=== PATIENT | male | born 1965 | race African-American/Black ===

== ENCOUNTER 2017-06-09 12:21 | Emergency (ER) | payer OTHER ==
[2017-06-09 12:41] VITALS: BP 148/86; PULSE 78; TEMP 97.1; BMI 33.7
[2017-06-09] MEDS ORDERED: KETOROLAC TROMETHAMINE 60 MG/2 ML VIAL IM ONE (13:07)
[2017-06-09] MEDS ORDERED: diazePAM 5 MG TABLET PO ONE (13:07)
[2017-06-09] MEDS ORDERED: KETOROLAC TROMETHAMINE 60 MG/2 ML VIAL ONE (13:11)
[2017-06-09] MEDS ORDERED: diazePAM 5 MG TABLET ONE (13:11)
--- NOTE | 2017-06-09 13:29 | PDOC ---
History of Present Illness - General Chief Complaint: Back Pain Stated Complaint: LOWER BACK PAIN Time Seen by Provider: 06/09/17 12:51 History Source: Patient Exam Limitations: No Limitations - History of Present Illness Initial Comments: 06/09/17 13:08 CHIEF COMPLAINT: [Lower back pain] HISTORY OF PRESENT ILLNESS:[ 52]-year-old [male history of low back herniation was seen at Dr. Randall today, has a MRI scheduled for tomorrow.,[ Nonradiating pain, no neurosensory deficits, no bowel or bladder difficulty incontinence or urinary retention, no saddle anesthesia, no footdrop. No history of IVDU or history of cancer. ] REVIEW OF SYSTEMS: GENERAL: Afebrile, denies any weakness RESPIRATORY: No cough, wheezing, or hemoptysis. CARDIAC: No chest pain or shortness of breath MUSCULOSKELETAL: Pain to generalized lower back. No point tenderness. Pain worse on left then right SKIN : No erythema, no bruising, no deformity. GI/: Denies any abdominal pain, no urinary difficulty, incontinence or urinary retention. RECTAL: Denies any difficulty this A.m. NEUROLOGICAL: Denies any numbness or tingling. No neurosensory deficits. PHYSICAL EXAM: GENERAL: The patient is awake, alert, and fully oriented, in no acute distress. RESPIRATORY: Lungs clear bilaterally, no rhonchi wheezes or crackles CARDIAC: S1-S2 audible, no murmur rub or gallop MUSCULOSKELETAL: Pain to generalized lower back, nonradiating, no tingling or sensory deficit. Less than 2 second cap refill, +4 popliteal and pedal pulses. GI/: Abdomen soft, nontender, nondistended. No rebound tenderness. No masses palpable. MUSCULOSKELETAL: No spinal point tenderness. Normal reflexive and no deficits to sensation or strength. RECTAL: [Normal Rectal Tone]. SKIN: Warm, Dry, normal turgor, no erythema, no edema no bruising. Past History - Past Medical History Allergies/Adverse Reactions: Allergies Allergy/AdvReac Type Severity Reaction Status Date / Time No Known Allergies Allergy Verified 06/09/17 12:37 Home Medications: Ambulatory Orders Oxycodone HCl/Acetaminophen [Percocet 5-325 mg Tablet] 1 - 2 tab PO Q4H #20 tablet MDD 8 03/03/16 Methylprednisolone [Medrol Dose Abbe] 4 mg PO ASDIR #21 tablet 06/09/17 Oxycodone HCl/Acetaminophen [Percocet 5-325 mg Tablet] 1 - 2 tab PO Q4H #20 tablet MDD 10 06/09/17 COPD: No Other medical history: back problems - Immunization History Immunization Up to Date: Yes - Suicide/Smoking/Psychosocial Hx Smoking History: Current every day smoker Have you smoked in the past 12 months: Yes Number of Cigarettes Smoked Daily: 5 Information on smoking cessation initiated: No 'Breaking Loose' booklet given: 03/03/16 Hx Alcohol Use: No Drug/Substance Use Hx: No Substance Use Type: None Trauma Specific PMHX - Complaint Specific PMHX Back Injury: Yes Neck Injury: No *Physical Exam - Vital Signs Last Vital Signs Temp Pulse Resp BP Pulse Ox 97.1 F L 78 20 148/86 98 06/09/17 12:25 06/09/17 12:25 06/09/17 12:25 06/09/17 12:25 06/09/17 12:25 Medical Decision Making - Medical Decision Making 06/09/17 13:29 A/P: Patient with chronic lower back pain has MRI scheduled for tomorrow pain increased in intensity took Flexeril of Motrin without resolve. Dr. Randall sent patient to ER for "shot" will give Toradol 60 mg and Valium 5 mg then reevaluate. 06/09/17 16:25 Patient reports pain is better after the Toradol DC patient home on Percocet and Solu-Medrol, follow-up tomorrow for MRI and follow-up with surgeon. *DC/Admit/Observation/Transfer Diagnosis at time of Disposition: Lumbar pain - Discharge Dispostion Disposition: HOME Condition at time of disposition: Stable - Prescriptions Prescriptions: Methylprednisolone [Medrol Dose Abbe] 4 mg PO ASDIR #21 tablet Oxycodone HCl/Acetaminophen [Percocet 5-325 mg Tablet] 1 - 2 tab PO Q4H #20 tablet MDD 10 - Referrals Referrals: Robinson Randall MD [Primary Care Provider] - - Patient Instructions Additional Instructions: 1. Please return to the emergency department with any numbness, tingling, weakness, numbness or tingling to groin or legs, or loss of bowel or bladder function. 2. Use pain medication as ordered. 3. Please is to followup in the office of Dr. Randall for evaluation within a week if no improvement. 4. Ice or heat 5. Refrain from lifting anything above 10 pounds, until pain resolved. - Post Discharge Activity Forms/Work/School Notes: Back to Work
== END 2017-06-09 14:03 | disposition home or self-care (01) ==
LOC: JERFT 12:21
PROC: 3E0233Z Introduction of Anti-inflammatory into Muscle, Percutaneous Approach (ICD-10-PCS; principal; 2017-06-09)
DX: M54.5 Low back pain (principal); F17.210 Nicotine dependence, cigarettes, uncomplicated
CPT/HCPCS: 99281-25

== ENCOUNTER 2017-07-07 19:04 | Emergency (ER) | payer OTHER ==
[2017-07-07 19:44] VITALS: BP 155/80; PULSE 84; TEMP 98.5; BMI 33.5
--- NOTE | 2017-07-07 22:09 | PDOC ---
History of Present Illness - General Chief Complaint: Back Pain Stated Complaint: BACK PAIN Time Seen by Provider: 07/07/17 21:51 History Source: Patient Exam Limitations: No Limitations - History of Present Illness Initial Comments: CHIEF COMPLAINT: 52 y/o male with hx of back problems (L2-L3 bone on bone) c/o flare up of back pain for the past 3 days. HISTORY OF PRESENT ILLNESS: The patient states for the past 3 weeks his low back pain has been flaring up more than usual. He had an MRI today and after laying in the machine can't take the pain. He normally takes MOtrin and sometimes a muscle relaxer but those are not helping. He denies new injury/ trauma to back, numbness/tingling in lower extremities, saddle anesthesia, bowel /bladder incontinence. Vital signs on arrival are within normal limits. REVIEW OF SYSTEMS: GENERAL/CONSTITUTIONAL: No fever/chills. No weakness. No weight change. GENITOURINARY: No dysuria, frequency, or change in urination. No bowel/bladder incontinence. MUSCULOSKELETAL: +back pain. No neck or back pain. SKIN: No rash or easy bruising. NEUROLOGIC: No headache, vertigo, loss of consciousness, or loss of sensation. PHYSICAL EXAM: GENERAL: The patient is awake, alert, and fully oriented, in moderate-severe discomfort. Patient keeps shifting his weight trying to find a comfortable position and is breathing through gritted teeth. BACK: TTP of midline L2-L3 area with TTP and muscle spasm of left lumbar paravertebral muscles. EXTREMITIES: Normal range of motion, no edema. NEUROLOGICAL: Normal speech, normal gait. CN II-XII grossly intact. No saddle anesthesia. Equal muscle strength b/l LEs. SKIN: Warm, dry, normal turgor, no rashes or lesions noted. Past History - Past Medical History Allergies/Adverse Reactions: Allergies Allergy/AdvReac Type Severity Reaction Status Date / Time No Known Allergies Allergy Verified 06/09/17 12:37 Home Medications: Ambulatory Orders Oxycodone HCl/Acetaminophen [Percocet 5-325 mg Tablet] 1 tab PO Q6H #10 tablet MDD 5 07/07/17 COPD: No - Immunization History Immunization Up to Date: Yes - Suicide/Smoking/Psychosocial Hx Smoking History: Current every day smoker Have you smoked in the past 12 months: Yes Number of Cigarettes Smoked Daily: 5 Information on smoking cessation initiated: No 'Breaking Loose' booklet given: 03/03/16 Hx Alcohol Use: No Drug/Substance Use Hx: No Substance Use Type: None Trauma Specific PMHX - Complaint Specific PMHX Back Injury: Yes Neck Injury: No *Physical Exam - Vital Signs Last Vital Signs Temp Pulse Resp BP Pulse Ox 98.5 F 84 18 155/80 100 07/07/17 19:43 07/07/17 19:43 07/07/17 19:43 07/07/17 19:43 07/07/17 19:43 Medical Decision Making - Medical Decision Making A/P: 52 y/o male with LBP secondary to flare up of chronic injury. Will give 2 percocet in the ER and discharge to home with rx for 10 percocet. He does have an appointment for f/u with his doctor tomorrow to read the MRI. THe patient was instructed to return to the ER with any worsening or concerning symptoms. The patient verbalizes understanding of all instructions, has no further questions and is awaiting discharge. *DC/Admit/Observation/Transfer Diagnosis at time of Disposition: Muscle spasm of back Low back pain Qualifiers: Chronicity: unspecified Back pain laterality: bilateral Sciatica presence: without sciatica Qualified Code(s): M54.5 - Low back pain - Discharge Dispostion Disposition: HOME Condition at time of disposition: Good - Referrals - Patient Instructions Printed Discharge Instructions: DI for Low Back Pain Additional Instructions: Discharge Instructions: -Please keep follow up appointment with your doctor scheduled for tomorrow -A prescription for percocet has been sent to your pharmacy; it may cause drowsiness -REturn to the ER with any worsening or concerning symptoms. - Post Discharge Activity
== END 2017-07-07 22:15 | disposition home or self-care (01) ==
LOC: JERFT 19:04
DX: M62.830 Muscle spasm of back (principal); M54.5 Low back pain; Z87.828 Personal history of other (healed) physical injury and trauma; F17.210 Nicotine dependence, cigarettes, uncomplicated
CPT/HCPCS: 99281-25

== ENCOUNTER 2018-04-15 12:24 | Emergency (ER) | payer OTHER ==
[2018-04-15 12:31] VITALS: BP 115/85; PULSE 82; TEMP 98.7; BMI 28.4
[2018-04-15] MEDS ORDERED: KETOROLAC TROMETHAMINE 30 MG/1 ML VIAL IM ONE (13:01)
[2018-04-15] MEDS ORDERED: diazePAM 5 MG TABLET PO ONE (13:01)
--- NOTE | 2018-04-15 13:03 | PDOC ---
History of Present Illness - General Chief Complaint: Back Pain Stated Complaint: LOWER BACK PAIN Time Seen by Provider: 04/15/18 12:45 History Source: Patient Exam Limitations: No Limitations - History of Present Illness Initial Comments: 04/15/18 13:01 CHIEF COMPLAINT: Lower back pain HISTORY OF PRESENT ILLNESS: 53-year-old male who presents emergency department for evaluation of acute on chronic lower back pain. Patient reports the pain is in his right sided lower back that shoots down the posterior right lower extremity to the popliteal. He denies any neurosensory deficits, incontinence of bladder or bowel, urinary retention, saddle anesthesia, foot drop, history of IV drug use or cancer. REVIEW OF SYSTEMS: GENERAL: Afebrile, denies any weakness RESPIRATORY: No cough, wheezing, or hemoptysis. CARDIAC: No chest pain or shortness of breath MUSCULOSKELETAL: Pain to right sided lower back. Unable to localize specific point. SKIN : No erythema, no bruising, no deformity. GI/: Denies any abdominal pain, no urinary difficulty, incontinence or urinary retention. RECTAL: Denies any difficulty this A.m. NEUROLOGICAL: Denies any numbness or tingling. No neurosensory deficits. PHYSICAL EXAM: GENERAL: The patient is awake, alert, and fully oriented, in no acute distress. RESPIRATORY: Lungs clear bilaterally, no rhonchi wheezes or crackles CARDIAC: S1-S2 audible, no murmur rub or gallop MUSCULOSKELETAL: Pain to generalized lower back, nonradiating, no tingling or sensory deficit. Less than 2 second cap refill, +2 pedal pulses. No spinal point tenderness. Normal reflexive and no deficits to sensation or strength. GI/: Abdomen soft, nontender, nondistended. No rebound tenderness. No masses palpable. RECTAL: Deferred patient with no neurological findings SKIN: Warm, Dry, normal turgor, no erythema, no edema no bruising. Past History - Past Medical History Allergies/Adverse Reactions: Allergies Allergy/AdvReac Type Severity Reaction Status Date / Time No Known Allergies Allergy Verified 04/15/18 12:52 Home Medications: Ambulatory Orders NK [No Known Home Medication] 04/15/18 COPD: No Other medical history: CHRONIC LOWER BACK PAIN - Immunization History Immunization Up to Date: Yes - Suicide/Smoking/Psychosocial Hx Smoking History: Current every day smoker Have you smoked in the past 12 months: Yes Number of Cigarettes Smoked Daily: 3 Information on smoking cessation initiated: No 'Breaking Loose' booklet given: 03/03/16 Hx Alcohol Use: No Drug/Substance Use Hx: No Substance Use Type: None Trauma Specific PMHX - Complaint Specific PMHX Back Injury: Yes Neck Injury: No *Physical Exam - Vital Signs Last Vital Signs Temp Pulse Resp BP Pulse Ox 98.7 F 82 18 115/85 98 04/15/18 12:30 04/15/18 12:30 04/15/18 12:30 04/15/18 12:30 04/15/18 12:30 Moderate Sedation - Procedure Monitoring Vital Signs: Procedure Monitoring Vital Signs Temperature 98.7 F 04/15/18 12:30 Pulse Rate 82 04/15/18 12:30 Respiratory Rate 18 04/15/18 12:30 Blood Pressure 115/85 04/15/18 12:30 O2 Sat by Pulse Oximetry (%) 98 04/15/18 12:30 Medical Decision Making - Medical Decision Making 04/15/18 13:02 A/P: 53-year-old male with acute on chronic lower back pain status post heavy lifting No bony tenderness upon palpation Tenderness to palpation bilateral lumbar paraspinous muscles. Worse on the right compared to left No palpable muscle spasms noted Able to perform straight leg raises without difficulty No foot drop noted Neurovascular intact Toradol 30 mg IM now Valium 5 mg orally now Reassess 04/15/18 13:45 Patient reports his pain has improved after receiving medication. Patient noted to be ambulatory with improve range of motion of is lumbar spine. Discharge the patient home for continued evaluation with his primary doctor as needed. I discussed the physical exam findings, ancillary test results and final diagnoses with the patient. I answered all of the patient's questions. The patient was satisfied with the care received and felt comfortable with the discharge plan and treatment plan. The patient will call their primary care physician within 24 hours to arrange follow-up and will return to the Emergency Department with any new, persistent or worsening symptoms. *DC/Admit/Observation/Transfer Diagnosis at time of Disposition: Acute exacerbation of chronic low back pain - Discharge Dispostion Disposition: HOME Condition at time of disposition: Stable Decision to Admit order: No - Referrals Referrals: Robinson Randall MD [Primary Care Provider] - - Patient Instructions Additional Instructions: Rest. Take Tylenol or Motrin as needed for pain. Follow manufacturers instructions for appropriate dosage. Warm moist heat applied to your back may help alleviate pain. This pain may take 6-8 weeks to resolve. Pain is not resolved in that time return to her primary doctor for reevaluation. Return to emergency department for numbness or tingling to the feet, genitals or rectum, worsening pain, or any other concerns. Thank you very much for choosing us to provide your emergent healthcare needs. - Post Discharge Activity Forms/Work/School Notes: Back to Work
[2018-04-15] MEDS ORDERED: KETOROLAC TROMETHAMINE 30 MG/1 ML VIAL ONE (13:05)
[2018-04-15] MEDS ORDERED: diazePAM 5 MG TABLET ONE (13:06)
== END 2018-04-15 13:58 | disposition home or self-care (01) ==
LOC: JERFT 12:24
PROC: 3E0233Z Introduction of Anti-inflammatory into Muscle, Percutaneous Approach (ICD-10-PCS; principal; 2018-04-15)
DX: M54.5 Low back pain (principal)
CPT/HCPCS: 96372; 99281-25

== ENCOUNTER 2018-09-11 11:21 | Emergency (ER) | payer SELFPAY, OTHER | END 2018-09-11 12:33 | disposition home or self-care (01) | LOC: JERFT 11:21 ==

== ENCOUNTER 2020-01-23 11:31 | Emergency (ER) | payer OTHER ==
[2020-01-23] MEDS ORDERED: LIDOCAINE 5% TOPICAL PATCH TP ONE (11:54)
--- NOTE | 2020-01-23 11:54 | PDOC ---
Rapid Medical Evaluation Time Seen by Provider: 01/23/20 11:48 Medical Evaluation: Allergies Allergy/AdvReac Type Severity Reaction Status Date / Time No Known Allergies Allergy Verified 09/11/18 11:39 01/23/20 11:50 I performed a brief in-person evaluation of this patient. Pt is a 54 y/o male with complaint of low back pain x 5 days. States today it got worse. Has not seen his spine doc for almost a year. Pt has tried taking Motrin for the pain. No injury. Pertinent physical exam findings: Significant low back pain with movement and palpation. I have ordered the following: lumbar xr, lidocaine patch, flexeril Patient to proceed to ED for further evaluation. Discharge Disposition - Diagnosis Low back pain - Referrals - Patient Instructions - Post Discharge Activity
[2020-01-23] MEDS ORDERED: CYCLOBENZAPRINE HCL 10 MG TABLET (FP) PO ONE (11:55)
[2020-01-23 11:56] VITALS: BP 124/87; PULSE 71; TEMP 98.2; BMI 27.7
[2020-01-23] MEDS ORDERED: KETOROLAC TROMETHAMINE 60 MG/2 ML VIAL IM ONE (12:26)
[2020-01-23] MEDS ORDERED: KETOROLAC TROMETHAMINE 60 MG/2 ML VIAL ONE (12:30)
--- NOTE | 2020-01-23 12:32 | PDOC ---
History of Present Illness - General Chief Complaint: Back Pain Stated Complaint: BACK PAIN Time Seen by Provider: 01/23/20 11:48 History Source: Patient - History of Present Illness Occurred: reports: other Pain Location: reports: back Past History - Medical History Allergies/Adverse Reactions: Allergies Allergy/AdvReac Type Severity Reaction Status Date / Time No Known Allergies Allergy Verified 01/23/20 11:55 Home Medications: Ambulatory Orders Amox-Tr/K Cl [Augmentin - 875Mg Tablet] 1 tab PO BID #14 tablet 09/11/18 Ketorolac Tromethamine [Toradol -] 10 mg PO TID PRN #21 tablet 09/11/18 Azithromycin [Zithromax] 500 mg PO ONCE #2 tablet 11/08/19 metroNIDAZOLE [Metronidazole] 2,000 gm PO ONCE #4 tablet 11/14/19 Acetaminophen [Tylenol -] 1,000 mg PO Q6H #40 tablet 01/23/20 Bictegrav/Emtricit/Tenofov Ala [Biktarvy 50-200-25 mg Tablet] 1 each PO DAILY #30 tablet 01/23/20 Cyclobenzaprine HCl [Flexeril 10 mg] 10 mg PO HS #9 tablet 01/23/20 Oxycodone HCl/Acetaminophen [Percocet 5-325 mg Tablet] 1 tab PO Q6H #15 tablet MDD 4 doses 01/23/20 Anemia: No Asthma: No Cancer: No Cardiac Disorders: No CVA: No COPD: No CHF: No Dementia: No Diabetes: No GI Disorders: No Disorders: No HTN: No Hypercholesterolemia: No Liver Disease: No Seizures: No Thyroid Disease: No - Immunization History Immunization Up to Date: Yes - Psycho-Social/Smoking History Smoking History: Current every day smoker Have you smoked in the past 12 months: Yes Number of Cigarettes Smoked Daily: 3 Information on smoking cessation initiated: No 'Breaking Loose' booklet given: 03/03/16 - Substance Abuse Hx (Audit-C & DAST Scrn) How often the patient has a drink containing alcohol: Monthly or less Number of drinks the patient has on a typical day: 1 or 2 How often the patient has six or more drinks on one occasion: Never Score: In Men: 4 or > Positive; In Women: 3 or > Positive: 1 Screen Result (Pos requires Nsg. Audit-10AR): Negative In the last yr the pt used illegal drug/Rx for NonMed reason: Yes Score: Yes response is considered Positive: 1 Screen Result (Positive result requires Nsg. DAST-10): Positive Trauma Specific PMHX - Complaint Specific PMHX Back Injury: Yes Neck Injury: No Review of Systems - Review of Systems Constitutional: No: Chills, Fever ABD/GI: No: Nausea, Vomiting, Abdominal cramping : No: Burning, Dysuria, Hematuria Musculoskeletal: Yes: Back Pain Neurological: No: Numbness, Tingling, Weakness, Dizziness *Physical Exam - Vital Signs Last Vital Signs Temp Pulse Resp BP Pulse Ox 98.2 F 71 17 124/87 100 01/23/20 11:52 01/23/20 11:52 01/23/20 11:52 01/23/20 11:52 01/23/20 11:52 - Physical Exam General Appearance: Yes: Appropriately Dressed, Moderate Distress HEENT: positive: Normal Voice Neck: positive: Supple Respiratory/Chest: negative: Respiratory Distress Gastrointestinal/Abdominal: positive: Soft. negative: Tender Musculoskeletal: positive: Vertebral Tenderness (to mid lower back). negative: CVA Tenderness, CVA Tenderness (L) Integumentary: positive: Dry, Warm Neurologic: positive: Fully Oriented, Alert, Normal Mood/Affect, Motor Strength 5/5 Medical Decision Making - Medical Decision Making 01/23/20 12:32 54 yo M, h/o chronic LBP s/p work injury 6 years ago and told "no cartilage between the bones" on remote MRI, no surgery or PT in the past, f/u with pain MD in [place], here w/ his usual lower back pain radiating into his right buttocks and posterior aspect of his right thigh that started several days ago. No sensory changes, lower extremity weakness saddle anesthesia or bowel or bladder incontinence. Taking Motrin and Tylenol with no relief. States he usually gets Percocet for his pain but has since run out. Has pain appointment and early February. see exam Acute on chronic lower back pain No red flags at this time DC with pain control Patient to follow-up with pain doctor as already scheduled Discharge - Discharge Information Problems reviewed: Yes Clinical Impression/Diagnosis: Acute exacerbation of chronic low back pain - Additional Discharge Information Prescriptions: Cyclobenzaprine HCl [Flexeril 10 mg] 10 mg PO HS #9 tablet Oxycodone HCl/Acetaminophen [Percocet 5-325 mg Tablet] 1 tab PO Q6H #15 tablet MDD 4 doses Acetaminophen [Tylenol -] 1,000 mg PO Q6H #40 tablet - Follow up/Referral Referrals: Robinson Randall MD [Primary Care Provider] - - Patient Discharge Instructions Patient Printed Discharge Instructions: Managing Chronic Low Back Pain Additional Instructions: Take tylenol and flerexil as directed If pain is severe, take percocet as needed Please follow up with your pain doctor as already scheduled - Post Discharge Activity Work/Back to School Note: Back to Work
--- OUTSIDE RECORDS SUMMARY | 2020-01-23 12:38 | XMS ---
:1965 Author Organization [facility] Support Name Relationship Address Phone UE Unavailable Unavailable Unavailable [employer] [address] [facility] [address] [place] [address] Re-disclosure Warning The records that you are about to access may contain information from federally- assisted alcohol or drug abuse programs. If such information is present, then the following federally mandated warning applies: This information has been disclosed to you from records protected by federal confidentiality rules (42 CFR part 2). The federal rules prohibit you from making any further disclosure of this information unless further disclosure is expressly permitted by the written consent of the person to whom it pertains or as otherwise permitted by 42 CFR part 2. A general authorization for the release of medical or other information is NOT sufficient for this purpose. The Federal rules restrict any use of the information to criminally investigate or prosecute any alcohol or drug abuse patient.The records that you are about to access may contain highly sensitive health information, the redisclosure of which is protected by Article 27-F of the [facility] Public Health law. If you continue you may haveaccess to information: Regarding HIV / AIDS; Provided by facilities licensed or operated by the [facility] Office of Mental Health; or Provided by the [facility] Office for People With Developmental Disabilities. If such information is present, then the following [facility] mandated warning applies: This information has been disclosed to you from confidential records which are protected by state law. State law prohibits you from making any further disclosure of this information without the specific written consent of the person to whom it pertains, or as otherwise permitted by law. Any unauthorized further disclosure in violation of state law may result in a fine or skilled nursing sentence or both. A general authorization for the release of medical or other information is NOT sufficient authorization for further disclosure. Insurance Providers Payer name Policy type Policy ID Covered Covered libertarian's Policy P faby / Coverage libertarian ID relationship to [employer] type [place] [id number] [place] [id number] HMO SELF PAY SP INSURANCE [place] [id number] [address] [facility]
[2020-01-23] MEDS ORDERED: LIDOCAINE PATCH REMOVAL MC SCH (22:00)
== END 2020-01-23 12:44 ==
LOC: JERFT 11:31
PROC: 3E0233Z Introduction of Anti-inflammatory into Muscle, Percutaneous Approach (ICD-10-PCS; principal; 2020-01-23)
DX: M54.5 Low back pain (principal)
CPT/HCPCS: 72100-TC-FY; 99285-25

== ENCOUNTER 2020-04-13 14:25 | Emergency (ER) | payer OTHER ==
[2020-04-13 14:37] VITALS: BP 126/77; PULSE 79; TEMP 97.8; BMI 26.2
[2020-04-13] MEDS ORDERED: AZITHROMYCIN 500 MG TABLET PO ONE (15:41)
[2020-04-13] MEDS ORDERED: cefTRIAXone SODIUM 1 GM VIAL ONE (16:15)
[2020-04-13] MEDS ORDERED: AZITHROMYCIN 250 MG TABLET ONE (16:23)
== END 2020-04-13 17:05 | disposition home or self-care (01) ==
LOC: JERFT 14:25
DX: Z20.2 Contact with and (suspected) exposure to infections with a predominantly sexual mode of transmission (principal)
CPT/HCPCS: 36415; 87491; 87591; 99284-25

== ENCOUNTER → 2020-09-15 | Day surgery (SDC) | payer OTHER ==
[2020-09-09 11:57] VITALS: BMI 29.0
== END | disposition home or self-care (01) ==
LOC: FASU 08:16
PROVIDERS: ATTEND Orthopaedic Surgery
PROC: 0LQ14ZZ Repair Right Shoulder Tendon, Percutaneous Endoscopic Approach (ICD-10-PCS; principal; 2020-09-15)
DX: Z53.09 Procedure and treatment not carried out because of other contraindication (principal); M75.101 Unspecified rotator cuff tear or rupture of right shoulder, not specified as traumatic

== ENCOUNTER 2020-10-03 07:45 | Day surgery (SDC) | payer OTHER ==
[2020-10-03 08:29] VITALS: TEMP 97.7; BMI 29.0
[2020-10-03] MEDS ORDERED: MIDAZOLAM HCL 2 MG/2 ML SINGLE DOSE VIAL ONE (08:54)
[2020-10-03] MEDS ORDERED: ROPIVACAINE HCL 0.5% 30ML VIAL ONE (08:54)
[2020-10-03] MEDS ORDERED: EPINEPHrine 1:1,000 1 MG/1 ML - 30ML VIAL (INJECTION) ONE (09:17)
[2020-10-03] MEDS ORDERED: PROPOFOL 20 ML ONE ×3 (09:52)
[2020-10-03] MEDS ORDERED: ceFAZolin SODIUM 1 GM VIAL ONE (10:09)
[2020-10-03] MEDS ORDERED: ONDANSETRON 4 MG/2 ML VIAL IVPUSH PRN (10:17)
[2020-10-03] MEDS ORDERED: oxyCODONE HCL 5 MG TABLET PO PRN (10:17)
[2020-10-03] MEDS ORDERED: ONDANSETRON 4 MG/2 ML VIAL ONE (10:26)
[2020-10-03] MEDS ORDERED: DEXAMETHASONE SOD PHOSPHATE 4 MG/1 ML VIAL ONE (10:26)
[2020-10-03] MEDS ORDERED: LACTATED RINGERS SOLUTION 1,000 ML IV SCH (10:30)
[2020-10-03 13:53] VITALS: BP 126/84; PULSE 62
== END 2020-10-03 13:45 | disposition home or self-care (01) ==
LOC: FASU 07:45
PROVIDERS: ATTEND Orthopaedic Surgery
PROC: 0RBJ4ZZ Excision of Right Shoulder Joint, Percutaneous Endoscopic Approach (ICD-10-PCS; 2020-10-03)
PROC: 0LQ14ZZ Repair Right Shoulder Tendon, Percutaneous Endoscopic Approach (ICD-10-PCS; principal; 2020-10-03 10:26)
PROC: 0RNJ4ZZ Release Right Shoulder Joint, Percutaneous Endoscopic Approach (ICD-10-PCS; 2020-10-03 10:26)
DX: M75.101 Unspecified rotator cuff tear or rupture of right shoulder, not specified as traumatic (principal); S43.431A Superior glenoid labrum lesion of right shoulder, initial encounter; X58.XXXA Exposure to other specified factors, initial encounter; Y93.9 Activity, unspecified; Y92.9 Unspecified place or not applicable; M65.811 Other synovitis and tenosynovitis, right shoulder; M75.51 Bursitis of right shoulder; M75.01 Adhesive capsulitis of right shoulder
CPT/HCPCS: 88304-TC; 94760

== ENCOUNTER 2021-08-28 10:04 | Emergency (ER) | payer OTHER ==
[2021-08-28 10:09] VITALS: BP 128/84; PULSE 70; TEMP 98.7; BMI 30.1
[2021-08-28] MEDS ORDERED: KETOROLAC TROMETHAMINE 30 MG/1 ML VIAL IM ONE (11:28)
[2021-08-28] MEDS ORDERED: KETOROLAC TROMETHAMINE 30 MG/1 ML VIAL ONE (11:37)
== END 2021-08-28 13:15 | disposition home or self-care (01) ==
LOC: JERFT 10:04
PROC: 3E0233Z Introduction of Anti-inflammatory into Muscle, Percutaneous Approach (ICD-10-PCS; principal; 2021-08-28)
DX: M54.50 Low back pain, unspecified (principal)
CPT/HCPCS: 96372; 99284-25

== ENCOUNTER 2022-07-05 09:06 | Emergency (ER) | payer OTHER ==
[2022-07-05 09:18] VITALS: BP 125/81; PULSE 63; RESP 17; TEMP 98.4; BMI 30.8
[2022-07-05] MEDS ORDERED: LIDOCAINE 5% TOPICAL PATCH TP ONE (09:57)
[2022-07-05] MEDS ORDERED: KETOROLAC TROMETHAMINE 30 MG/1 ML VIAL IM ONE (09:57)
[2022-07-05] MEDS ORDERED: METHOCARBAMOL 500 MG TABLET PO ONE (09:57)
[2022-07-05] MEDS ORDERED: LIDOCAINE 5% TOPICAL PATCH ONE (10:00)
[2022-07-05] MEDS ORDERED: KETOROLAC TROMETHAMINE 30 MG/1 ML VIAL ONE (10:01)
[2022-07-05] MEDS ORDERED: METHOCARBAMOL 500 MG TABLET ONE (10:01)
[2022-07-05] MEDS ORDERED: LIDOCAINE PATCH REMOVAL MC SCH (22:00)
== END 2022-07-05 11:12 | disposition home or self-care (01) ==
LOC: JERFT 09:06
PROC: 3E0233Z Introduction of Anti-inflammatory into Muscle, Percutaneous Approach (ICD-10-PCS; principal; 2022-07-05)
DX: M54.50 Low back pain, unspecified (principal)
CPT/HCPCS: 99284-25

== ENCOUNTER 2023-10-14 13:47 | Emergency (ER) | payer OTHER ==
[2023-10-14 13:54] VITALS: BP 123/85; PULSE 78; RESP 16; TEMP 97.9; BMI 29.7
[2023-10-14] MEDS ORDERED: KETOROLAC TROMETHAMINE 30 MG/1 ML VIAL ONE (14:58)
[2023-10-14] MEDS ORDERED: LIDOCAINE 4% PATCH TP ONE (14:58)
[2023-10-14] MEDS ORDERED: diazePAM 5 MG TABLET ONE (14:58)
[2023-10-14] MEDS: LIDOCAINE 5% TOPICAL PATCH TP ONE (15:05)
[2023-10-14] MEDS: KETOROLAC TROMETHAMINE 30 MG/1 ML VIAL IM ONE (15:05)
[2023-10-14] MEDS: diazePAM 5 MG TABLET PO ONE (15:06)
[2023-10-14] MEDS ORDERED: LIDOCAINE PATCH REMOVAL MC SCH (22:00)
== END 2023-10-14 16:45 | disposition home or self-care (01) ==
LOC: JERFT 13:47
PROC: 3E0233Z Introduction of Anti-inflammatory into Muscle, Percutaneous Approach (ICD-10-PCS; principal; 2023-10-14)
DX: M62.838 Other muscle spasm (principal); M54.2 Cervicalgia; M25.511 Pain in right shoulder; M54.6 Pain in thoracic spine
CPT/HCPCS: 72050-TC-FY; 72070-TC-FY; 99284-25

== ENCOUNTER 2023-12-05 19:49 | Emergency (ER) | payer OTHER ==
[2023-12-05 19:57] VITALS: BP 133/85; PULSE 75; RESP 18; TEMP 98.4; BMI 29.5
[2023-12-05] MEDS ORDERED: ACETAMINOPHEN 500 MG TABLET (FP) ONE (20:28)
[2023-12-05] MEDS ORDERED: KETOROLAC TROMETHAMINE 30 MG/1 ML VIAL ONE (20:28)
[2023-12-05] MEDS: ACETAMINOPHEN 500 MG TABLET (FP) PO ONE (20:34)
[2023-12-05] MEDS: KETOROLAC TROMETHAMINE 30 MG/1 ML VIAL IM ONE (20:35)
[2023-12-06] MEDS ORDERED: oxyCODONE HCL 5 MG TABLET ONE (00:19)
[2023-12-06] MEDS: oxyCODONE HCL 5 MG TABLET PO ONE (00:20)
[2023-12-06] MEDS ORDERED: METHOCARBAMOL 500 MG TABLET ONE (00:44)
[2023-12-06] MEDS: METHOCARBAMOL 500 MG TABLET PO ONE (00:46)
== END 2023-12-06 01:07 | disposition home or self-care (01) ==
LOC: JER 19:49 → JERFT 19:49
PROC: 3E0233Z Introduction of Anti-inflammatory into Muscle, Percutaneous Approach (ICD-10-PCS; principal; 2023-12-05)
DX: S49.91XA Unspecified injury of right shoulder and upper arm, initial encounter (principal); V18.0XXA Pedal cycle driver injured in noncollision transport accident in nontraffic accident, initial encounter
CPT/HCPCS: 73030-TC-RT-FY; 76882-TC-RT; 99284-25

== ENCOUNTER 2023-12-17 22:30 | Emergency (ER) | payer OTHER ==
[2023-12-17 22:42] VITALS: BP 120/83; PULSE 86; RESP 18; TEMP 97.9; BMI 29.4
[2023-12-17] MEDS ORDERED: DOXYCYCLINE HYCLATE 100 MG CAPSULE PO ONE (23:04)
[2023-12-17] MEDS: DOXYCYCLINE HYCLATE 100 MG CAPSULE PO ONE (23:12)
[2023-12-17 23:46] LABS: EPI CELLS 12 /uL (0-25.1); HYALINE CASTS 1 /uL (0-3.1); PH,URINE 5.5 (5.0-8.0); URINE APPEARANCE CLEAR; URINE BACTERIA 60 /uL (0-1359); URINE BILIRUBIN NEGATIVE (NEGATIVE); URINE COLOR YELLOW; URINE GLUCOSE (UA) NEGATIVE (NEGATIVE); URINE KETONE TRACE (NEGATIVE); URINE LEUK ESTERASE 2+ (NEGATIVE); URINE NITRITE NEGATIVE (NEGATIVE); URINE PROTEIN NEGATIVE (NEGATIVE); URINE RBC 9 /uL (0-23.9); URINE WBC 149 /uL (0-25.8)
[2023-12-18 13:46] LABS: HIV INTERPRETATION PRESUMPTIVE POSITIVE (NEGATIVE)
== END 2023-12-17 23:14 | disposition home or self-care (01) ==
LOC: JER 22:30 → JERFT 22:30
DX: N48.89 Other specified disorders of penis (principal)
CPT/HCPCS: 36415; 81003; 86803; 87086; 87389; 87491; 87591; 99284-25

== ENCOUNTER 2023-12-24 19:58 | Emergency (ER) | payer OTHER ==
[2023-12-24 20:14] VITALS: BP 150/87; PULSE 108; RESP 20; TEMP 98.4; BMI 32.3
[2023-12-24] MEDS ORDERED: ACETAMINOPHEN 325 MG TABLET (FP) ONE (21:14)
[2023-12-24] MEDS ORDERED: LIDOCAINE 4% PATCH TP ONE (21:15)
[2023-12-24] MEDS: ACETAMINOPHEN 500 MG TABLET (FP) PO ONE (21:17)
[2023-12-24] MEDS: LIDOCAINE 5% TOPICAL PATCH TP ONE (21:17)
[2023-12-24] MEDS: KETOROLAC TROMETHAMINE 60 MG/2 ML VIAL IM ONE (21:30)
[2023-12-24] MEDS ORDERED: DIPHTH,PERTUSS(ACELL),TET 0.5 ML DISP.SYRIN IM ONE (21:31)
[2023-12-24] MEDS ORDERED: KETOROLAC TROMETHAMINE 30 MG/1 ML VIAL ONE (21:31)
[2023-12-24] MEDS: DIPHTH,PERTUSS(ACELL),TET 0.5 ML DISP.SYRIN IM ONE (21:36)
[2023-12-24] MEDS: KETOROLAC TROMETHAMINE 30 MG/1 ML VIAL IM ONE (21:37)
[2023-12-25] MEDS ORDERED: LIDOCAINE PATCH REMOVAL MC ONE (09:00)
== END 2023-12-24 22:16 | disposition home or self-care (01) ==
LOC: JER 19:58
PROC: 3E0233Z Introduction of Anti-inflammatory into Muscle, Percutaneous Approach (ICD-10-PCS; principal; 2023-12-24)
PROC: 3E0234Z Introduction of Serum, Toxoid and Vaccine into Muscle, Percutaneous Approach (ICD-10-PCS; 2023-12-24)
DX: R07.89 Other chest pain (principal); V00.831A Fall from motorized mobility scooter, initial encounter; Z23 Encounter for immunization
CPT/HCPCS: 71101-TC-RT-FY; 90471; 90715; 96372; 99284-25